=== PATIENT | male | born 1945 | race Caucasian/White ===

== ENCOUNTER 2023-12-02 13:15 | Emergency (ER) | payer BC, OTHER, SELFPAY ==
[2023-12-02 13:29] VITALS: BP 140/69
[2023-12-02 13:49] LABS: % Eosinophils 1.7 % (0-6); % Immature Granulocytes 0.3 % (0-0.5); % Lymphocytes 47.7 % (20.5-51.1); % Monocytes 7.6 % (1.7-9.3); % Neutrophils 41.7 % (42.2-75.2); Absolute Basophils 0.1 10^3/uL (0-0.2); Absolute Eosinophils 0.1 10^3/uL (0-0.7); Absolute Lymphocytes 2.9 10^3/uL (1.2-3.4); Absolute Monocytes 0.5 10^3/uL (0.1-0.6); Absolute Neutrophils 2.5 10^3/uL (1.4-6.5); Hematocrit 39.1 % (39.0-52.0); Hemoglobin 13.7 g/dL (13.0-18.0); Mean Corpuscular Hgb 31.2 pg (27.0-31.0); Mean Corpuscular Volume 89.1 fL (80.0-94.0); Mean Platelet Volume 8.8 fL (7.4-10.4); Nucleated Red Blood Cells % 0 % (-); Platelet Count 227 10^3/uL (130-400); Red Blood Cell Count 4.39 10^6/uL (4.70-6.10)
[2023-12-02 14:03] LABS: ALT (SGPT) 20 U/L (0-50); AST (SGOT) 27 U/L (17-59); Albumin 4.2 g/dl (3.5-5.0); Alkaline Phosphatase 64 U/L (38-126); Blood Urea Nitrogen 10 mg/dl (9-20); Calcium 9.2 mg/dl (8.4-10.2); Carbon Dioxide 28 mmol/L (22-30); Chloride 105 mmol/L (98-107); Glucose 130 mg/dl (70-99); Potassium 3.8 mmol/L (3.5-5.1); Sodium 136 mmol/L (135-145); Total Bilirubin 0.9 mg/dl (0.2-1.3); Total Protein 6.8 g/dl (6.3-8.2); eGFR > 60.00
--- NOTE | 2023-12-02 16:36 | ED.GENMED ---
History of Present Illness
General
Chief Complaint: Nose Bleed
Source: patient
Exam Limitations: none
Time Seen by Provider: 12/02/23 15:47
Travel History
Have you had any contact with someone who has COVID-19?: No
Do you have any symptoms of coronavirus? Fever > 100 degrees, chills, cough, shortness of breath, sore throat, loss of taste or smell, muscle aches, or headache?: No
History of Present Illness
History of Present Illness:
78 y/o M with h/o hld
says he started spontaneously having bleeding from left nostril after blowing nose a few hours ago at home. he held pressure and leaned back and then sprayed some afrin in both nostrils and has not had bleeding since. no clots.
he had nosebleed 2 weeks ago which also spontaneously resolved
he is not anticoagulated
no clots, lightheadedness, posterior pharynx bleeding, bleeidng from anywhere else
Past History
Past History
ED Past Medical History: GERD and Hypercholesterolemia
ED Past Surgical History: Orthopedic and Tonsilectomy
Social History
Tobacco: Non-smoker
Alcohol: Occasional
Drug: None
Personal:
Living: with family
Review of Systems
Review of Systems
Allergies reviewed?: Yes
All Other Systems: Not applicable
Phy Exam
Physical Exam
Physical Exam:
GENERAL: Alert , in no apparent distress
EYE: pupils equal and reactive
NECK: Supple
ENT: left nare has scabbed over blood in the medial septal region very anteriorly without active bleeding
no blood in right notstril
no blood in posterior pharynx
CARDIAC: Regular rate and rhythm, no edema
LUNGS: Clear breath sounds bilaterally, no acute respiratory distress, no wheezes/rales/rhonchi, occ cough
NEUROLOGICAL: Alert and oriented, no focal neuro deficits
SKIN: Warm and dry, skin intact.
PSYCH: Normal and appropriate interaction.
Course
Orders/Labs/Results
Orders:
Orders
12/02/23 13:37
Complete Blood Count/With Diff Urgent
Comprehensive Metabolic Panel Urgent
Abnormal Lab Results
12/02/23
13:37
RBC 4.39 L 10^6/uL
(4.70-6.10)
MCH 31.2 H pg
(27.0-31.0)
Neutrophils % 41.7 L %
(42.2-75.2)
Glucose 130 H mg/dl
(70-99)
12/02/23 13:37
12/02/23 13:37
Vital Signs
Initial and Last Documented VS:
Initial Vital Signs
Temp Pulse Resp BP Pulse Ox
98.0 F 73 16 140/69 98
12/02/23 13:29 12/02/23 13:29 12/02/23 13:29 12/02/23 13:29 12/02/23 13:29
Last Documented Vital Signs
Temp Pulse Resp BP Pulse Ox
98.0 F 73 16 140/69 98
12/02/23 13:29 12/02/23 13:29 12/02/23 13:29 12/02/23 13:29 12/02/23 13:29
MDM/Problems Addressed
Differential Diagnosis Includes:
epistaxis, sinsuitis
MDM/Problems Addressed:
78 y/o M with h/o HLD, aniety
h/o nosebleeds younger
had one 2 weeks ago that was longer lasting spontaneously from L nostril
today started a few hours ago
he says he blew his nose and it started from L
put his head back and put some cotton in
then blew his nose and sprayed afrin and it stopped
had some clots p rior to it stopping
no bleeding since arrival
on exam pt has small scab inside of the left nostril medially but no obvious bleeding
no blood in post pharynx
no thinners
recommend pt nellie;yl another dose of afrin tonight
given clamps in case he starts bleeding again
hg stable
d/c home, f/u ent.
*Critical Care Note
Total Time (30-74mins, 75-104mins- exclusive of procedures): Not Applicable
ED Attending Note
-
Portions of this chart may have been created with voice recognition software.� Occasional wrong word or��sound alike� substitutions may have occurred due to the inherent limitations of voice recognition software.
Discharge Plan
Departure
Patient Disposition: Home (Routine Discharge)
Date of Disposition: 12/02/23
Time of Disposition: 16:36
Patient with high blood pressure during this ER visit?: No
Condition: Fair
Covid-19: Not Applicable
Discharge Problem:
Epistaxis
Instructions: Nosebleeds (DC)
Prescriptions:
No Action
sertraline 100 MG tablet
100 mg PO DAILY
sildenafil [Viagra] 100 MG tablet
100 mg PO DAILY
simvastatin 40 MG tablet
40 mg PO DAILY
omeprazole 20 MG capsule,delayed release(DR/EC)
20 mg PO DAILY
oxycodone-acetaminophen 5 MG/325 MG tablet
1 tab PO Q4HPRN PRN (Reason: Pain) Qty: 15 0RF
meclizine 25 mg tablet
25 mg PO TID PRN (Reason: dizziness) Qty: 20 0RF
Referrals:
Yuval Walton MD [Family Provider] -
Slime Garay MD [Active] - Follow up in 5-7 days (ent)
Activity Restrictions/Additional Instructions:
You can apply a glob of Vaseline on the outside of your nostrils to help moisten the air that you breathe. Try to avoid blowing your nose or picking your nose or putting anything in there other than Afrin 1 or 2 sprays in each nostril tonight
before bed. After tonight please do not use the Afrin, if you use it regularly it could cause a rebound congestion and it can elevate your blood pressure.
If you start bleeding again you can put 1 or 2 sprays of the Afrin in your nose and then use the clamp on your nose for 15 minutes. If you are still bleeding after that please return to the ER immediately. Otherwise you can follow-up with the ENT
doctor. Return for any concerns
Interventions
Interventions:
*ED COVID-19 Vaccine History Last Done: 12/02/23 13:29
*Nursing Disposition Last Done: 12/02/23 16:46
ED-EENT Assessment Last Done: 12/02/23 16:08
Discharge Date and Time
Discharge Date/Time: 12/02/23 16:46
== END 2023-12-02 16:46 | disposition home or self-care (01) ==
LOC: EMR 13:15
PROVIDERS: Emergency Medicine; EMERGENCY PHYSICIAN Student in an Organized Health Care Education/Training Program; FAMILY PHYSICIAN Family Medicine
DX: R04.0 Epistaxis (principal); K21.9 Gastro-esophageal reflux disease without esophagitis; E78.00 Pure hypercholesterolemia, unspecified
CPT/HCPCS: 99283; 80053; 85025

== ENCOUNTER → 2024-11-01 15:18 | Outpatient (REF) | payer BC, OTHER, SELFPAY | LOC: RAD 15:18 | PROVIDERS: ATTENDING PHYSICIAN Physician Assistant Medical | DX: M54.50 Low back pain, unspecified (principal) | CPT/HCPCS: 72110 ==

== ENCOUNTER → 2025-02-02 09:19 | Outpatient (REF) | payer BC, OTHER, SELFPAY ==
[2025-02-02 11:17] LABS: PSA, Total - Diagnostic 1.26 ng/ml (0.0-4.0)
== END ==
LOC: REG 09:19
PROVIDERS: ATTENDING PHYSICIAN Specialist
DX: Z12.5 Encounter for screening for malignant neoplasm of prostate (principal)
CPT/HCPCS: 36415; 84153

== ENCOUNTER → 2025-09-26 06:35 | Outpatient (REF) | payer BC, OTHER, SELFPAY | LOC: MRI 3T 06:35 | PROVIDERS: ATTENDING PHYSICIAN Orthopaedic Surgery Hand Surgery; FAMILY PHYSICIAN Physician Assistant Medical | DX: M25.512 Pain in left shoulder (principal) | CPT/HCPCS: 73221 ==